=== PATIENT | female | born 1950 | race Caucasian/White ===

== ENCOUNTER → 2018-07-17 14:40 | Outpatient (CLI) | payer MEDICARE, OTHER, SELFPAY | PROVIDERS: Family Provider Family Medicine; PCP Family Medicine; Visit Provider Family Medicine | DX: M85.852 Other specified disorders of bone density and structure, left thigh (principal); Z78.0 Asymptomatic menopausal state; E07.9 Disorder of thyroid, unspecified; N28.9 Disorder of kidney and ureter, unspecified | CPT/HCPCS: 77080 ==

== ENCOUNTER → 2018-11-04 09:12 | Outpatient (CLI) | payer MEDICARE, OTHER, SELFPAY ==
--- NOTE | 2018-11-04 | DI.MG.S_ITS ---
BILATERAL DIGITAL SCREENING MAMMOGRAM 3D/2D WITH CAD: 11/04/2018 CLINICAL: Routine screening. Comparison is made to exams dated: 08/28/2017 mammogram, 07/22/2016 mammogram, and 07/18/2015 mammogram - [facility]. The tissue of both breasts is heterogeneously dense. This may lower the sensitivity of mammography. Current study was also evaluated with a Computer Aided Detection (CAD) system. There are benign calcifications in both breasts. There also is a benign biopsy clip in the left breast. No significant masses, calcifications, or other findings are seen in either breast. There has been no significant interval change. IMPRESSION: There is no mammographic evidence of malignancy. A 1 year screening mammogram is recommended. This exam was interpreted at Station ID: [id number]. NOTE: For mammograms, a report in lay terms will be sent to the patient. Approximately 15% of breast malignancies will not be visualized mammographically. In the management of a palpable breast mass, a negative mammogram must not discourage biopsy of a clinically suspicious lesion. Electronically Signed By: Rudolph moreira/claudine:11/04/2018 11:42:27 letter sent: Normal Exam ACR BI-RADS Category 2: Benign Finding(s) 3342F
== END ==
PROVIDERS: Family Provider Family Medicine; PCP Family Medicine; Visit Provider Family Medicine
DX: Z12.31 Encounter for screening mammogram for malignant neoplasm of breast (principal)
CPT/HCPCS: 77063; 77067

== ENCOUNTER → 2020-10-05 15:05 | Outpatient (ROUT) | payer MEDICARE, OTHER, SELFPAY ==
[2020-10-05 15:43] LABS: Hematocrit 42.4 % (36-46); Hemoglobin 14.1 g/dL (12.0-16.0); Mean Corpuscular HGB Conc 33.3 % (30-36); Mean Corpuscular Hemoglobin 33.3 PG (26-34); Mean Corpuscular Volume 100.2 fL (80-100); Platelet Count 328 X10^3/uL (150-400); Red Blood Cell Count 4.24 X10^6/uL (4.0-5.2); Red Cell Distribution Width 13.2 % (11.6-14.8); White Blood Cell Count 5.5 X10^3/uL (4.5-11.0)
[2020-10-05 16:11] LABS: Alanine Aminotransferase 28 IU/L (<35); Albumin 4.5 g/dL (3.5-5.0); Albumin Globulin Ratio 1.5 (1.0-2.8); Alkaline Phosphatase 98 U/L (38-126); Aspartate Aminotransferase 34 IU/L (14-36); BUN Creatinine Ratio 21.8 (6-22); Blood Urea Nitrogen 22 mg/dL (7-17); Calcium 10.1 mg/dL (8.4-10.2); Carbon Dioxide 27 mmol/L (22-32); Chloride 102 mmol/L (98-107); Cholesterol 180 mg/dL (140-199); Estimated Glomerular Filt Rate 54.2 mL/min (>60); Globulin 3.1 g/dL (1.7-4.1); Glucose 96 mg/dL (80-110); HDL Cholesterol 81 mg/dL (40-60); HEMOLYSIS < 15 (0-50); LDL Cholesterol Calculated 80 mg/dL (<100); Potassium 4.5 mmol/L (3.4-5.1); Sodium 139 mmol/L (137-145); Total Protein 7.6 g/dL (6.3-8.2); Triglycerides 93 mg/dL (35-150)
[2020-10-05 16:51] LABS: Thyroid Stimulating Hormone 1.06 uIU/mL (0.47-4.68)
== END ==
PROVIDERS: Visit Provider Internal Medicine
DX: E78.5 Hyperlipidemia, unspecified (principal); E03.9 Hypothyroidism, unspecified
CPT/HCPCS: 80053; 80061; 84443; 85027

== ENCOUNTER → 2021-09-01 09:39 | Outpatient (CLI) | payer MEDICARE, OTHER, SELFPAY ==
--- NOTE | 2021-09-01 09:44 | DI.MG.S_ITS ---
BILATERAL DIGITAL SCREENING MAMMOGRAM 3D/2D WITH CAD: 09/01/2021 CLINICAL: Routine screening. Comparison is made to exams dated: 11/04/2018 mammogram, 08/28/2017 mammogram, and 07/22/2016 mammogram - [facility]. The tissue of both breasts is heterogeneously dense. This may lower the sensitivity of mammography. Current study was also evaluated with a Computer Aided Detection (CAD) system. There are benign calcifications in both breasts. There also is a biopsy clip in the left breast. No significant masses, calcifications, or other findings are seen in either breast. There has been no significant interval change. IMPRESSION: BENIGN There is no mammographic evidence of malignancy. A 1 year screening mammogram is recommended. This exam was interpreted at Station ID: [id number]. NOTE: For mammograms, a report in lay terms will be sent to the patient. Approximately 15% of breast malignancies will not be visualized mammographically. In the management of a palpable breast mass, a negative mammogram must not discourage biopsy of a clinically suspicious lesion. Electronically Signed By: Sean Gaviria M.D., jr/claudine:09/03/2021 09:20:13 letter sent: Normal Exam ACR BI-RADS Category 2: Benign Finding(s) 3342F
== END ==
PROVIDERS: PCP Family Medicine; Referring Provider Family Medicine; Visit Provider Family Medicine
DX: Z12.31 Encounter for screening mammogram for malignant neoplasm of breast (principal)
CPT/HCPCS: 77063; 77067

== ENCOUNTER 2022-02-18 13:12 | Emergency (ER) | payer MEDICARE, OTHER, SELFPAY ==
[2022-02-18] VITALS (10 sets, daily range): BP systolic 178; BP diastolic 78; PULSE 60–73; RESP 21–36; TEMP 36.3; O2SAT 95–99
--- NOTE | 2022-02-18 13:20 | DI.RAD.S_ITS ---
PROCEDURE: XR CHEST 1V INDICATIONS: chest pain TECHNIQUE: One view of the chest was acquired. COMPARISON: , CR, XR CHEST 2 VIEWS, 01/18/2022, 15:21. FINDINGS: Surgical changes and devices: Left chest dual lead pacemaker. Lungs and pleura: Minimal opacity present at the left lung base laterally. No pleural effusions or pneumothorax. Mediastinum: Mediastinal contours appear normal. Heart size is normal. Bones and chest wall: No suspicious bony lesions. Overlying soft tissues appear unremarkable. IMPRESSION: Minimal opacity is present at the left lung base laterally, likely atelectasis but aspiration or pneumonia are difficult to exclude. Otherwise, no acute appearing cardiopulmonary abnormality. Dictated by: John Hair M.D. on 02/18/2022 at 13:49 Approved by: John Hair M.D. on 02/18/2022 at 13:54
[2022-02-18 13:49] LABS: Add Manual Diff / Slide Review NO; Basophils Absolute Auto 0 /uL (0-100); Basophils Percent Auto 0.6 % (0-2); Eosinophils Absolute Auto 100 /uL (0-450); Eosinophils Percent Auto 1.6 % (2-4); Hemoglobin 12.7 g/dL (12.0-16.0); Lymphocytes Absolute Auto 1500 /uL (1100-4500); Lymphocytes Percent Auto 22.8 % (25-40); Mean Corpuscular HGB Conc 34.4 % (30-36); Mean Corpuscular Hemoglobin 33.1 PG (26-34); Mean Corpuscular Volume 96.5 fL (80-100); Monocytes Absolute Auto 500 /uL (0-900); Monocytes Percent Auto 7.3 % (3-14); Neutrophils Absolute Auto 4500 /uL (1500-7000); Neutrophils Percent Auto 67.7 % (50-75); Platelet Count 304 X10^3/uL (150-400); Red Blood Cell Count 3.83 X10^6/uL (4.0-5.2); Red Cell Distribution Width 13.6 % (11.6-14.8); White Blood Cell Count 6.6 X10^3/uL (4.5-11.0)
[2022-02-18 13:56] LABS: Alanine Aminotransferase 53 IU/L (<35); Albumin 4.3 g/dL (3.5-5.0); Albumin Globulin Ratio 1.2 (1.0-2.8); Alkaline Phosphatase 110 U/L (38-126); Aspartate Aminotransferase 38 IU/L (14-36); BUN Creatinine Ratio 21.9 (6-22); Blood Urea Nitrogen 23 mg/dL (7-17); Carbon Dioxide 26 mmol/L (22-32); Chloride 104 mmol/L (98-107); Creatine Kinase 89 U/L (30-135); Estimated Glomerular Filt Rate 57 mL/min (>60); Globulin 3.5 g/dL (1.7-4.1); Glucose 156 mg/dL (80-110); HEMOLYSIS < 15 (0-50); Lipase 76 U/L (23-300); Magnesium 1.8 mg/dL (1.6-2.3); Potassium 4.3 mmol/L (3.4-5.1); Sodium 138 mmol/L (137-145); Total Protein 7.8 g/dL (6.3-8.2)
[2022-02-18 14:07] LABS: Troponin I < 0.012 ng/mL (0.01-0.034)
[2022-02-18 14:29] LABS: NT-proBNP (BNP-Adult 18+) 2070 pg/mL (<125)
--- NOTE | 2022-02-18 15:03 | DI.CT.S_ITS ---
PROCEDURE: CT CHEST WO CON INDICATIONS: 1 month s/p pacer, orthopnea, only at night. TECHNIQUE: Noncontrast 5 mm thick sections acquired from the pulmonary apices to the posterior costophrenic angles. 1 mm lung window, 5 mm thick coronal and sagittal and 7 mm axial MIP reformats were then acquired. For radiation dose reduction, the following was used: automated exposure control, adjustment of mA and/or kV according to patient size. COMPARISON: None. FINDINGS: Image quality: Excellent. Lungs and pleura: There is mild interlobular septal thickening suggesting mild pulmonary edema. There are small bilateral low-density pleural effusions and compressive atelectasis. No acute airspace opacities. 2 and 3 mm pulmonary nodules are present at the right apex. Mediastinum: Heart size is normal. No pericardial effusion. No mediastinal adenopathy by size criteria. Thoracic aorta and central pulmonary arteries are normal in size. Trace atheromatous calcifications are present at the thoracic arch. Esophagus is normal in caliber. No hiatal hernia. Bones and chest wall: No suspicious bony lesions. No vertebral body compression fractures. No axillary or supraclavicular adenopathy by size criteria. Thyroid gland is unremarkable . Abdomen: Visualized upper abdominal solid organs and bowel loops appear normal in the absence of contrast. IMPRESSION: 1. Mild interlobular septal thickening and small pleural effusions suggesting fluid overload. 2. No other acute pulmonary findings. Dictated by: Eileen Quintana M.D. on 02/18/2022 at 16:00 Approved by: Eileen Quintana M.D. on 02/18/2022 at 16:02
--- NOTE | 2022-02-18 15:04 | ED_ITS ---
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 Patient states she had some new medications started and had some lightheadedness and dizziness but starting on 02/07 at 11:00 p.m. patient started feeling more short of breath and wheezy. She states it is always at nighttime it is never during the day. She is about an hour after she lays flat and she will have to sit bolt upright. She states it will usually go away after about an hour. Any time she lays flat again it reoccurs. She has some mild shortness of breath with exertion but not significant according to patient. She will get chest pressure with the episode on the but denies regularly. No syncope or lightheadedness currently. No swelling in her extremities. No nausea or vomiting, no black or bloody stools, no diarrhea constipation. No urinary symptoms. She is not had these symptoms in the past. Patient states no other cardiac interventions no ablation, cardiac stents valve replacements. She states that besides the pacemaker no other surgeries. No allergies other than penicillin. No tobacco, rare alcohol, THC rarely. [facility] care is [facility] through [facility] in [place]. Dr. Alves is her electroph ysiologist with [facility] cardiology. Dr. Alves states that after workup he would ask that patient has device be interrogated and also asked for a CT non con to evaluate for pericardial effusion as or unlikely to get an echo here in the department today. Related Data Home Medications Medication Instructions Recorded Confirmed atorvastatin 20 mg tablet (Lipitor) 20 mg PO QDAY ##0 07/06/17 Previous Rx's Medication Instructions Recorded sulfacetamide sodium 10 % eye 15 ml OP Q4HWA ##15 07/06/17 drops (Bleph-10) furosemide 20 mg tablet (Lasix) 20 mg PO DAILY #5 tabs 02/18/22 potassium chloride 20 mEq 20 meq PO DAILY #5 tabs 02/18/22 tablet,extended release Allergies Allergy/AdvReac Type Severity Reaction Status Date / Time Penicillins [PENICILLINS] Allergy Intermediate RASH Unverified 10/22/17 13:05 Review of Systems Review of Systems ROS Unobtainable: All systems reviewed & are unremarkable except as noted in HPI and below Patient History Surgical History Status post surgery (07/22/14) Exam Narrative Exam Narrative: GENERAL: Alert and oriented x three, elderly female in mild distress. HEENT: Head normocephalic, atraumatic, EOMI, pupils reactive, face symmetric, moist mucous membranes NECK: Supple, full range of motion CARDIOVASCULAR: Regular rate and rhythm without murmurs, rubs or gallops. No JVD. No swelling bilateral lower extremities. RESPIRATORY: Breath sounds equal bilaterally, no wheezes rales or rhonchi. No tachypnea or accessory muscle use. ABDOMEN: Soft, nontender. Normoactive bowel sounds all 4 quadrants. No guarding or rebound, rigidity, no mass : No CVA tenderness EXTREMITIES: Normal range of motion, no clubbing or edema. Neurovascularly intact NEUROLOGICAL: Cranial nerves II through XII grossly intact. Moving all extremities SKIN: Warm, dry, no petechiae, no rashes or lesions. Initial Vital Signs Initial Vital Signs: Vital Signs Pulse Oximetry 99 02/18/22 13:17 Course Orders Ordered: ED Orders 02/18/22 13:20 XR chest 1V Stat 02/18/22 13:23 EKG-12 Lead Stat 02/18/22 13:30 BNP [NT-proBNP (BNP-Adult 18+)] Stat Complete Blood Count AUTO DIFF Stat Comprehensive Metabolic Panel Stat Lipase Stat Magnesium Stat Troponin & CK Cardiac Panel Stat 02/18/22 15:03 CT chest wo con Stat Discontinued Medications Furosemide (Furosemide 40 Mg/4 Ml Vial) 40 mg IV NOW ONE Stop: 02/18/22 16:44 Last Admin: 02/18/22 17:09 Dose: 40 mg Documented By: CTS Consultations Consultation #1: Dr. Erlin Alves patient's chief human resources officer/calculation reviewer, discussed today's findings, device was interrogated he was able to review these as well, CT chest does not show pericardial effusion does show some pleural effusions and changes consistent with CHF and BNP is elevated although troponin negative, after discussion plan put patient on a course of Lasix he recommends 20 mg daily with 20 mEq of potassium and will have the office contact the patient tomorrow morning to set up close follow-up. Vital Signs Vital signs: Vital Signs - 8 hr 02/18/22 13:20 02/18/22 13:17 02/18/22 13:18 Temperature 97.4 F L Pulse Rate 64 Respiratory Rate 22 Blood Pressure 178/78 H 178/78 H Pulse Oximetry 98 99 Oxygen Delivery Method Room Air 02/18/22 13:18 02/18/22 13:30 02/18/22 14:00 Temperature Pulse Rate 73 70 65 Respiratory Rate 21 36 H Blood Pressure Pulse Oximetry 96 96 96 Oxygen Delivery Method Room Air 02/18/22 14:30 02/18/22 15:00 02/18/22 15:30 Temperature Pulse Rate 60 63 60 Respiratory Rate 24 28 H 29 H Blood Pressure Pulse Oximetry 97 99 96 Oxygen Delivery Method 02/18/22 17:02 02/18/22 17:30 Temperature Pulse Rate 71 64 Respiratory Rate 29 H 24 Blood Pressure Pulse Oximetry 96 95 Oxygen Delivery Method MDM - SOB/Dyspnea Lab Data Result diagrams: 02/18/22 13:30 02/18/22 13:30 Labs: Lab Results 02/18/22 02/18/22 02/18/22 Range/Units 13:30 13:30 13:30 WBC 6.6 (4.5-11.0) X10^3/uL RBC 3.83 L (4.0-5.2) X10^6/uL Hgb 12.7 (12.0-16.0) g/dL Hct 37.0 (36-46) % MCV 96.5 (80-100) fL MCH 33.1 (26-34) PG MCHC 34.4 (30-36) % RDW 13.6 (11.6-14.8) % Plt Count 304 (150-400) X10^3/uL Neut % (Auto) 67.7 (50-75) % Lymph % (Auto) 22.8 L (25-40) % Maries % (Auto) 7.3 (3-14) % Eos % (Auto) 1.6 L (2-4) % Baso % (Auto) 0.6 (0-2) % Neut # (Auto) 4500 (2017-3777) /uL Lymph # (Auto) 1500 (6058-4015) /uL Maries # (Auto) 500 (0-900) /uL Eos # (Auto) 100 (0-450) /uL Baso # (Auto) 0 (0-100) /uL Sodium 138 (137-145) mmol/L Potassium 4.3 (3.4-5.1) mmol/L Chloride 104 (98-107) mmol/L Carbon Dioxide 26 (22-32) mmol/L BUN 23 H (7-17) mg/dL Creatinine 1.05 H (0.52-1.04) mg/dL Estimated GFR 57 L (>60) mL/min BUN/Creatinine Ratio 21.9 (6-22) Glucose 156 H (80-110) mg/dL Calcium 9.0 (8.4-10.2) mg/dL Magnesium 1.8 (1.6-2.3) mg/dL Total Bilirubin 1.0 (0.2-1.3) mg/dL AST 38 H (14-36) IU/L ALT 53 H (<35) IU/L Alkaline Phosphatase 110 (38-126) U/L Total Creatine Kinase 89 (30-135) U/L CK-MB (CK-2) TNP CK-MB (CK-2) Rel Index TNP Troponin I < 0.012 (0.01-0.034) ng/mL NT-Pro-B Natriuret Pep 2070 H (<125) pg/mL Total Protein 7.8 (6.3-8.2) g/dL Albumin 4.3 (3.5-5.0) g/dL Globulin 3.5 (1.7-4.1) g/dL Albumin/Globulin Ratio 1.2 (1.0-2.8) Lipase 76 (23-300) U/L Imaging Data Chest x-ray: Radiologist's Impression: [address] [address] XRay Report Signed Patient: Bita Goldstein MR#: [id number] : 1950 Acct:[id number] Age/Sex: 71 / F Date of Service: 02/18/22 Loc: ED Accession Number: [id number] ?? Procedure: XR chest 1V Ordering Provider: Fernanda Albrecht D.O. PROCEDURE:? XR CHEST 1V ? INDICATIONS:? chest pain ? TECHNIQUE:? One view of the chest was acquired.? ? COMPARISON:? [facility], CR, XR CHEST 2 VIEWS, 01/18/2022, 15:21. ? FINDINGS:? ? Surgical changes and devices:? Left chest dual lead pacemaker. ? Lungs and pleura:? Minimal opacity present at the left lung base laterally.? No pleural effusions or pneumothorax.? ? Mediastinum:? Mediastinal contours appear normal.? Heart size is normal.? ? Bones and chest wall:? No suspicious bony lesions.? Overlying soft tissues appear unremarkable.? ? IMPRESSION:? Minimal opacity is present at the left lung base laterally, likely atelectasis but aspiration or pneumonia are difficult to exclude.? Otherwise, no acute appearing cardiopulmonary abnormality. ? ? Dictated by: John aHir M.D. on 02/18/2022 at 13:49 ? ? Approved by: John Hair M.D. on 02/18/2022 at 13:5 ECG Data Attestation: I personally reviewed and interpreted this ECG as follows: Interpretation: Atrial sensed, ventricularly paced rhythm with a rate of 71 NV 184 QRS of [address] QTC of 506. MDM Narrative Medical decision making narrative: This is a 71-year-old female with what is described as orthopnea nightly when she tries to lay flat. She is fairly asymptomatic during the daytime. Patient has paced rhythm, labs show an elevated BNP, negative troponin patient's likelihood for pulmonary emboli is quite low particularly with her very specific clinical story. Renal function is slightly bumped patient does have known left atrophic kidney, no other major electrolyte abnormalities and no significant changes in hemoglobin. CT chest was ordered non con after discussion with electrophysiology and device was interrogated. These showed pleural, changes consistent with pulmonary edema with elevated BNP and no pericardial effusion. Patient appears to be in CHF, this is most consistent with her history of orthopnea and shortness of breath only at night while lying flat. Patient started on a short course of diuretic with potassium supplementation at recommendation of Dr. Alves who is going to follow shortly with the patient. All questions answered return precautions discussed. Discharge Plan Departure Patient Disposition: Home Clinical Impression: CHF (congestive heart failure) Instructions: DI for Heart Failure Activity Restrictions/Additional Instructions: Follow-up with Dr. Alves, he plans to have the office contact you tomorrow. He may have you get an outpatient echo in the next week. Take Lasix and potassium daily until gone. Take this medication in the morning as it will make you urinate frequently but tapers off as the day progresses. Continue home medications as prescribed. Prescription sent to [facility] in [place]. Please return for new or worsening chest pain, shortness of breath, persistent lightheadedness or passing out, new swelling in her extremities, nausea vomiting or other new or concerning symptoms. Prescriptions: New furosemide [Lasix] 20 mg tablet 20 mg PO DAILY Qty: 5 0RF potassium chloride 20 mEq tablet extended release 20 meq PO DAILY Qty: 5 0RF No Action atorvastatin [Lipitor] 20 MG tablet 20 mg PO QDAY Qty: 0 sulfacetamide sodium [Bleph-10] 5 ML drops 15 ml OP Q4HWA Qty: 15 0RF Referrals: Erlin Alves MD [Physician] - Fernanda Balderas MD [Primary Care Provider] - Visit Report Forms: Patient Portal/API
[2022-02-18] MEDS: FUROSEMIDE 40 MG/4 ML VIAL IV (17:09)
== END 2022-02-18 17:43 | disposition home or self-care (01) ==
PROVIDERS: Emergency Provider Emergency Medicine; PCP Family Medicine; Referring Provider Internal Medicine Cardiovascular Disease
DX: I50.9 Heart failure, unspecified (principal); R79.89 Other specified abnormal findings of blood chemistry; R06.02 Shortness of breath
CPT/HCPCS: 36415; 71045; 71250; 80053; 82550; 83690; 83735; 83880; 84484; 85025; 93005; 93010; 96374; 99284; J1940

== ENCOUNTER → 2022-05-23 09:47 | Outpatient (CLI) | payer MEDICARE, OTHER, SELFPAY ==
--- NOTE | 2022-05-23 09:49 | DI.NM.S_ITS ---
PROCEDURE: NM GIANNA PERF SPECT REST & STR Rest and exercise myocardial perfusion SPECT with gated imaging and ejection fraction RADIOPHARMACEUTICAL: 11.0 mCi Tc-99m sestamibi IV at rest and 25.6 mCi Tc-99m sestamibi IV at peak exercise. A [id number] was performed. INDICATIONS: Paroxysmal atrial fibrillation TECHNIQUE: Radiopharmaceutical was injected at peak stress test, and also at rest. SPECT images were obtained. SPECT myocardial perfusion images were displayed in short axis, horizontal long axis, and vertical long axis views. Gated images were reviewed using NetDragon software. COMPARISON: None. CARDIAC STRESS: A standard Rusty treadmill exercise tolerance test was performed by the patient under the supervision of an attending staff. The patient exercised for 5 minutes and 30 seconds; 7.0 METS; functional aerobic impairment (OLEG) is +1%. Hemodynamic data: There is normal blood pressure and heart rate response to exercise stress. Patient achieved 83% of maximum predicted heart rate at peak exercise. Symptoms: Patient denied chest pain during exercise. EKG: No diagnostic EKG changes of ischemia; occasional PVCs. FINDINGS: Raw data: There is good myocardial labeling by radiotracer. No significant motion artifacts. Zjxc-[id number] ratio is 0.26 (normal is less than 0.38 for sestamibi tracer, and less than 0.50 for thallium tracer). Left ventricle function: Gated images demonstrate normal left ventricle wall thickening. No segmental wall motion abnormality. No transient ischemic dilation; TID is 0.96 (normal less than 1.3). The left ventricle resting end-diastolic volume is 93 mL. Left ventricle stress ejection fraction is 60%; normal values are above 45%. Myocardial perfusion: There is a medium size, moderate intensity fixed defect in all distal and apical segments that is better but not completely resolved in prone imaging. IMPRESSION: Likely low risk test. No reversible perfusion defects. The medium size, moderate intensity fixed defect in the distal and apical segments does show some improvement in prone imaging. Given that wall motion is normal in this area, this defect would be most consistent with attenuation artifact rather than scar. No exercise-induced ECG changes. Normal blood pressure response to exercise. Fair exercise capacity. Dictated by: Lily Delgado D.O. on 05/24/2022 at 17:06 Approved by: Lily Delgado D.O. on 05/24/2022 at 17:13
[2022-05-23 11:07] LABS: COVID19 -Nasal RAPID Negative (Negative)
== END ==
PROVIDERS: PCP Family Medicine; Referring Provider Internal Medicine Cardiovascular Disease; Visit Provider Internal Medicine Cardiovascular Disease
DX: I48.0 Paroxysmal atrial fibrillation (principal); Z20.822 Contact with and (suspected) exposure to COVID-19
CPT/HCPCS: 78452; 87635; 93017; A9502

== ENCOUNTER → 2023-02-19 08:13 | Outpatient (CLI) | payer MEDICARE, OTHER, SELFPAY ==
--- NOTE | 2023-02-19 | DI.MG.S_ITS ---
BILATERAL DIGITAL SCREENING MAMMOGRAM 3D/2D WITH CAD: 02/19/2023 CLINICAL: Routine screening. Comparison is made to exams dated: 09/01/2021 mammogram, 11/04/2018 mammogram, and 08/28/2017 mammogram - [facility]. Both breasts are heterogeneously dense, which may obscure small masses (category c / 51-75% glandular tissue). Current study was also evaluated with a Computer Aided Detection (CAD) system. There are benign calcifications in both breasts. There also is a biopsy clip in the left breast. No significant masses, calcifications, or other findings are seen in either breast. There has been no significant interval change. IMPRESSION: BENIGN There is no mammographic evidence of malignancy. A 1 year screening mammogram is recommended. Based on the Tyrer Cuzick model (a risk assessment model) the patient's lifetime risk is 6.2% and her 10 year risk is 4.6%. According to the ACR, ACS, and NCCN guidelines, an annual breast MRI exam along with mammogram is recommended if the patient's lifetime risk is 20% or greater. This exam was interpreted at Station ID: [id number]. NOTE: For mammograms, a report in lay terms will be sent to the patient. Approximately 15% of breast malignancies will not be visualized mammographically. In the management of a palpable breast mass, a negative mammogram must not discourage biopsy of a clinically suspicious lesion. Electronically Signed By: Alex bassett/claudine:02/19/2023 08:58:45 letter sent: Normal Exam ACR BI-RADS Category 2: Benign Finding(s) 3342F
== END ==
PROVIDERS: PCP Family Medicine; Referring Provider Family Medicine; Visit Provider Family Medicine
DX: Z12.31 Encounter for screening mammogram for malignant neoplasm of breast (principal)
CPT/HCPCS: 77063; 77067